=== PATIENT | male | born 1995 | race Caucasian/White ===

== ENCOUNTER 2016-12-05 10:03 | Emergency (ER) | payer BC, OTHER ==
[2016-12-05 10:08] VITALS: BP 135/84; PULSE 115; TEMP 100.3; BMI 33.0
[2016-12-05] MEDS ORDERED: predniSONE 20 MG TABLET (UD) PO ONE (10:30)
[2016-12-05] MEDS ORDERED: ALBUTEROL SO4 2.5/IPRATROPIUM 0.5 INH SOL 3 ML VIAL.NEB. NEB ONE ×2 (10:30→10:31)
[2016-12-05] MEDS ORDERED: predniSONE 20 MG TABLET (UD) ONE (10:30)
--- NOTE | 2016-12-05 10:36 | PDOC ---
History of Present Illness - General Chief Complaint: Pain Stated Complaint: COUGH, SORE THROAT CHEST PAIN Time Seen by Provider: 12/05/16 10:30 History Source: Patient, Parent(s) Exam Limitations: No Limitations - History of Present Illness Initial Comments: 12/05/16 10:33 Patient came to emergency department for continued worsening of cough, body aches, runny nose, sore throat pain and general malaise. Was seen by PMD 2 days ago and prescribed Augmentin but patient states has had no improvement and in fact has progressively become worse. Fevers yesterday 102.6. States influenza testing was done 2 days ago which was negative Timing/Duration: reports: getting worse Severity: reports: moderate, severe Associated Symptoms: reports: cough, dizziness, fever/chills, nasal congestion, nasal drainage, sore throat Past History - Travel Traveled outside of the country in the last 30 days: No Close contact w/someone who was outside of country & ill: No - Past Medical History Allergies/Adverse Reactions: Allergies Allergy/AdvReac Type Severity Reaction Status Date / Time No Known Allergies Allergy Verified 12/05/16 10:08 Home Medications: Ambulatory Orders Albuterol 0.083% Nebulizer Lina [Ventolin 0.083% Nebulizer Soln -] 1 neb NEB Q4H PRN #30 vial 12/05/16 Amoxicillin/Potassium Clav [Augmentin 875-125 Tablet] 1 each PO BID 12/05/16 Oseltamivir Phosphate [Tamiflu -] 75 mg PO BID #10 capsule 12/05/16 Prednisone [Deltasone -] 20 mg PO BID #8 tablet 12/05/16 Other medical history: DENIES - Psycho/Social/Smoking Cessation Hx Suicidal Ideation: No Smoking History: Never smoked Information on smoking cessation initiated: No Respiratory Specific PMHX - Complaint Specific PMHX Bronchitis: No Pneumonia: No Review of Systems - Review of Systems Able to Perform ROS?: Yes Is the patient limited Haitian proficient: Yes Constitutional: Yes: Symptoms Reported, See HPI, Chills, Fever, Malaise, Weakness HEENTM: Yes: Symptoms Reported, See HPI, Nose Congestion, Throat Pain Respiratory: Yes: Symptoms reported, See HPI, Cough, Wheezing Cardiac (ROS): No: Symptoms Reported Musculoskeletal: Yes: Symptoms Reported, See HPI, Muscle Pain Integumentary: No: Symptoms Reported All Other Systems: Reviewed and Negative *Physical Exam - Vital Signs Last Vital Signs Temp Pulse Resp BP Pulse Ox 100.3 F H 115 H 18 135/84 97 12/05/16 10:05 12/05/16 10:05 12/05/16 10:05 12/05/16 10:05 12/05/16 10:05 - Physical Exam General Appearance: Yes: Nourished, Appropriately Dressed, Apparent Distress, Moderate Distress HEENT: positive: LUZ (glassy), TMs Normal (congested but landmarks easily visualized), Tonsillar Erythema, Nasal Congestion, Rhinorrhea. negative: Pharynx Normal (clear) Neck: positive: Tender, Supple, Lymphadenopathy (R), Lymphadenopathy (L) Respiratory/Chest: positive: Decreased Breath Sounds. 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 Will treat with duo nebs, prednisone for hyperactive airway, and provide Tamiflu Medical Decision Making - Medical Decision Making 12/05/16 10:44 patient states feels mildly improvement respiratory-bright however continues nausea and weakness. Is requesting IV fluids as has been anorexic for the past few days. Agreed will give 2 L of IV fluid, medicated with 30 mg of IV Toradol and will reevaluate. *DC/Admit/Observation/Transfer Diagnosis at time of Disposition: Influenza - Discharge Dispostion Disposition: HOME Condition at time of disposition: Stable Admit: No - Prescriptions Prescriptions: Prednisone [Deltasone -] 20 mg PO BID #8 tablet Oseltamivir Phosphate [Tamiflu -] 75 mg PO BID #10 capsule Albuterol 0.083% Nebulizer Lina [Ventolin 0.083% Nebulizer Soln -] 1 neb NEB Q4H PRN #30 vial PRN Reason: Cough - Referrals Referrals: Houston Varma MD [Primary Care Provider] - - Patient Instructions Printed Discharge Instructions: DI for Influenza -- Adult Additional Instructions: Rest, drink lots of fluids: Teas, water, soups, Pedialyte Saltwater gargles Steamy showers/seem to face break up mucus Old-fashioned treatments help! Avoid contact with others until fevers and cough resolved as this is very contagious Lots of handwashing and good hygiene Continue [id number] medications for symptomatic relief Tylenol or Motrin for fever and pain Continue prednisone 40 mg daily for the next 4 days Continue albuterol nebulizers as needed for continued cough Take all of Tamiflu as directed: 1 tab every 12 hours for 5 days Followup with private physician in one to 2 days as needed or if worsening Return to emergency department for worsened symptoms, fevers, dehydration Influenza takes between 5 and 7 days for resolution To not participate in any activity, work, or school until fevers and cough are gone for at least one day - Post Discharge Activity Work/School Note: Back to Work
[2016-12-05] MEDS ORDERED: KETOROLAC TROMETHAMINE 30 MG/1 ML VIAL ONE (11:00)
[2016-12-05] MEDS ORDERED: SODIUM CHLORIDE 1,000 ML IV ONE ×2 (11:56→12:25)
== END 2016-12-05 12:53 | disposition home or self-care (01) ==
LOC: JERFT 10:03
PROC: 3E0337Z Introduction of Electrolytic and Water Balance Substance into Peripheral Vein, Percutaneous Approach (ICD-10-PCS; principal; 2016-12-05)
PROC: 3E0F7GC Introduction of Other Therapeutic Substance into Respiratory Tract, Via Natural or Artificial Opening (ICD-10-PCS; 2016-12-05)
DX: J11.1 Influenza due to unidentified influenza virus with other respiratory manifestations (principal)
CPT/HCPCS: 94640; 96360; 96361; 99281-25

== ENCOUNTER 2016-12-07 19:17 | Emergency (ER) | payer OTHER ==
[2016-12-07 19:25] VITALS: BP 151/80; PULSE 105; TEMP 97.8; BMI 33.0
--- NOTE | 2016-12-07 20:28 | PDOC ---
History of Present Illness - General Chief Complaint: Sore Throat Stated Complaint: PAIN Time Seen by Provider: 12/07/16 19:54 - History of Present Illness Initial Comments: 12/07/16 20:20 CHIEF COMPLAINT: persistent URI symptoms HISTORY OF PRESENT ILLNESS: 21 yo F with hx of asthma presents to [facility] with runny nose, cough, and fever x 4 days. PAtient was seen by his PMD on Tuesday and diagnosed with URI (flu negative), but patient returned to this ED two days ago and was diagnosed with flu (flu swab not done, dx based on symptoms ). Patient states yesterday his throat began to hurt badly and he thought his tonsils "were so swollen they were touching the uvula." No recent travel or sick contacts. PAST MEDICAL HISTORY: Denies past medical history FAMILY HISTORY: Denies SOCIAL HISTORY: Denies tobacco, alcohol, illicit drug use. SURGICAL HISTORY: Denies ALLERGIES: No known drug allergies REVIEW OF SYSTEMS General/Constitutional: Denies fever or chills. Denies weakness, weight change. HEENT: Throat pain since yesterday. Denies change in vision. Denies ear pain or discharge. Denies sore throat. Cardiovascular: Denies chest pain or shortness of breath. Respiratory: Denies cough, wheezing, or hemoptysis. Gastrointestinal: Denies nausea, vomiting, diarrhea or constipation. Denies rectal bleeding. Genitourinary: Denies dysuria, frequency, or change in urination. Musculoskeletal: Denies joint or muscle swelling or pain. Denies neck or back pain. Skin and breasts: Denies rash or easy bruising. Neurologic: Denies headache, vertigo, loss of consciousness, or loss of sensation. PHYSICAL EXAM General Appearance: Well-appearing, appropriately dressed. No apparent distress , no intoxication. HEENT: Tonsils 3+, exudate to left tonsil. No uvular deviation, no uvular swelling. EOMI, PERRLA, normal ENT inspection, normal voice, TMs normal, pharynx normal. No conjunctival pallor. No photophobia, scleral icterus. Neck: Supple. Trachea midline. No tenderness, rigidity, carotid bruit, stridor , lymphadenopathy, or thyromegaly. Respiratory/Chest: Lungs CTAB. Cardiovascular: RRR. S1, S2. Integumentary: Appropriate color, dry, warm. 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 Fully oriented, alert. Appropriate mood/affect. Motor strength 5/5. No appreciable EOM palsy, facial droop or sensory deficit. Past History - Past Medical History Allergies/Adverse Reactions: Allergies Allergy/AdvReac Type Severity Reaction Status Date / Time No Known Allergies Allergy Verified 12/07/16 19:22 Home Medications: Ambulatory Orders Oseltamivir Phosphate [Tamiflu -] 75 mg PO BID #10 capsule 12/05/16 Prednisone [Deltasone -] 20 mg PO BID #8 tablet 12/05/16 Albuterol 0.083% Nebulizer Lina [Ventolin 0.083% Nebulizer Soln -] 1 neb NEB Q4H PRN #30 vial 12/07/16 Azithromycin 500 mg PO DAILY #3 tablet 12/07/16 - Psycho/Social/Smoking Cessation Hx Suicidal Ideation: No Smoking History: Never smoked Number of Cigarettes Smoked Daily: 0 Information on smoking cessation initiated: No Hx Alcohol Use: No Drug/Substance Use Hx: No Respiratory Specific PMHX - Complaint Specific PMHX Bronchitis: No Pneumonia: No *Physical Exam - Vital Signs Last Vital Signs Temp Pulse Resp BP Pulse Ox 97.8 F 105 H 14 151/80 97 12/07/16 19:23 12/07/16 19:23 12/07/16 19:23 12/07/16 19:23 12/07/16 19:23 Medical Decision Making - Medical Decision Making 12/07/16 20:28 21 yo M with hx of asthma presents to ED with swollen tonsils s/p diagnoses of URI and influenze. -Rapid strep test MOther requests to change antibiotic as this has not been effective for patient. 500 mg azithromycin x 3 days rx sent to pharm Advised patient to take medication as prescribed and to f/u with ENT for concerns regarding tonsil size. Advised patient of signs and symptoms for return to ER. *DC/Admit/Observation/Transfer Diagnosis at time of Disposition: Tonsillitis with influenza, Tonsillitis with exudate - Discharge Dispostion Disposition: HOME Condition at time of disposition: Stable Admit: No - Prescriptions Prescriptions: Azithromycin 500 mg PO DAILY #3 tablet Albuterol 0.083% Nebulizer Lina [Ventolin 0.083% Nebulizer Soln -] 1 neb NEB Q4H PRN #30 vial PRN Reason: Cough - Referrals Referrals: Houston Varma MD [Primary Care Provider] - Ezra Denise MD [Staff Physician] - - Patient Instructions Printed Discharge Instructions: DI for Pharyngitis/Tonsillopharyngitis -- Adult Additional Instructions: Please take medications as prescribed and follow up with ENT for further evaluation of your tonsils. If you experience change in your voice, difficulty breathing, or swallowing your own saliva, develop fever, nausea, vomiting, diarrhea, or any new or worsening symptoms, please return to the ER.
== END 2016-12-07 21:43 | disposition home or self-care (01) ==
LOC: JERFT 19:17
DX: J03.90 Acute tonsillitis, unspecified (principal); J11.1 Influenza due to unidentified influenza virus with other respiratory manifestations
CPT/HCPCS: 87070; 87430; 99281-25

== ENCOUNTER 2019-05-24 00:11 | Emergency (ER) | payer OTHER ==
--- NOTE | 2019-05-24 01:01 | PDOC ---
Medical Decision Making - Medical Decision Making 05/24/19 01:00 Patient seen by the advanced practice provider under my direct supervision. Ancillary testing reviewed as necessary. I agree with plan as outlined by the advanced practice provider. *DC/Admit/Observation/Transfer Diagnosis at time of Disposition: Shoulder injury Qualifiers: Encounter type: initial encounter Laterality: right Qualified Code(s): S49.91XA - Unspecified injury of right shoulder and upper arm, initial encounter - Discharge Dispostion Disposition: HOME Condition at time of disposition: Stable - Referrals - Patient Instructions Printed Discharge Instructions: DI for Shoulder Pain - Post Discharge Activity
--- NOTE | 2019-05-24 01:02 | PDOC ---
History of Present Illness - General Stated Complaint: PAIN,RT SHOULDER Time Seen by Provider: 05/24/19 00:58 - History of Present Illness Initial Comments: 05/24/19 00:59 CHIEF COMPLAINT: shoulder pain HISTORY OF PRESENT ILLNESS: 24 yo M with no PMH presents to ED with shoulder pain earlier, now resolved. 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 No recent travel or sick contacts. PAST MEDICAL HISTORY: Denies past medical history FAMILY HISTORY: Denies SOCIAL HISTORY: Denies tobacco, alcohol, illicit drug use. SURGICAL HISTORY: Denies ALLERGIES: No known drug allergies REVIEW OF SYSTEMS General/Constitutional: Denies fever or chills. Denies weakness, weight change. HEENT: Denies change in vision. Denies ear pain or discharge. Denies sore throat. Cardiovascular: Denies chest pain or shortness of breath. Respiratory: Denies cough, wheezing, or hemoptysis. Gastrointestinal: Denies nausea, vomiting, diarrhea or constipation. Denies rectal bleeding. Genitourinary: Denies dysuria, frequency, or change in urination. Musculoskeletal: Denies joint or muscle swelling or pain. Denies neck or back pain. Skin and breasts: Denies rash or easy bruising. Neurologic: Denies headache, vertigo, loss of consciousness, or loss of sensation. PHYSICAL EXAM General Appearance: Well-appearing, appropriately dressed. No apparent distress , no intoxication. HEENT: EOMI, PERRLA, normal ENT inspection, normal voice, TMs normal, pharynx normal. No conjunctival pallor. No photophobia, scleral icterus. Neck: Supple. Trachea midline. No tenderness, rigidity, carotid bruit, stridor , lymphadenopathy, or thyromegaly. Respiratory/Chest: Lungs CTAB. No shortness of breath, chest tenderness, respiratory distress, accessory muscle use. No crackles, rales, rhonchi, stridor , wheezing, dullness Cardiovascular: RRR. S1, S2. No JVD, murmur, bradycardia, tachycardia. Vascular Pulses: Dorsalis-Pedis (R): 2+, Dorsalis-Pedis (L): 2+ Gastrointestinal/Abdominal: Normal bowel sounds. Abdomen soft, non-distended. No tenderness or rebound tenderness. No organomegaly, pulsatile mass, guarding , hernia, hepatomegaly, splenomegaly. Lymphatic: No adenopathy, tenderness. Musculoskeletal/Extremities: Normal inspection. FROM of all extremities, normal capillary refill. Pelvis Stable. No CVA tenderness. No tenderness to extremities, pedal edema, swelling, erythema or deformity. Integumentary: Appropriate color, dry, warm. 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 Fully oriented, alert. Appropriate mood/affect. Motor strength 5/5. No appreciable EOM palsy, facial droop or sensory deficit. Past History - Past Medical History Allergies/Adverse Reactions: Allergies Allergy/AdvReac Type Severity Reaction Status Date / Time No Known Allergies Allergy Verified 12/07/16 19:22 Home Medications: Ambulatory Orders Oseltamivir Phosphate [Tamiflu -] 75 mg PO BID #10 capsule 12/05/16 predniSONE [Deltasone -] 20 mg PO BID #8 tablet 12/05/16 Albuterol 0.083% Nebulizer Lina [Ventolin 0.083% Nebulizer Soln -] 1 neb NEB Q4H PRN #30 vial 12/07/16 Azithromycin 500 mg PO DAILY #3 tablet 12/07/16 - Suicide/Smoking/Psychosocial Hx Smoking History: Never smoked Number of Cigarettes Smoked Daily: 0 Hx Alcohol Use: No Drug/Substance Use Hx: No Medical Decision Making - Medical Decision Making 05/24/19 01:01 24 yo M with no PMH presents to ED with shoulder pain earlier, now resolved. Patient states he does not need to be here as his shoulder on longer hurts and refuses any medication. *DC/Admit/Observation/Transfer Diagnosis at time of Disposition: Shoulder injury Qualifiers: Encounter type: initial encounter Laterality: right Qualified Code(s): S49.91XA - Unspecified injury of right shoulder and upper arm, initial encounter - Discharge Dispostion Disposition: HOME Condition at time of disposition: Stable Decision to Admit order: No - Referrals - Patient Instructions Printed Discharge Instructions: DI for Shoulder Pain - Post Discharge Activity
[2019-05-24 01:39] VITALS: BP 120/80; BMI 24.2
== END 2019-05-24 01:40 | disposition home or self-care (01) ==
LOC: JER 00:11
DX: S49.91XA Unspecified injury of right shoulder and upper arm, initial encounter (principal); X58.XXXA Exposure to other specified factors, initial encounter; Y93.89 Activity, other specified; Y92.89 Other specified places as the place of occurrence of the external cause; Y99.0 Civilian activity done for income or pay
CPT/HCPCS: 99281-25